=== PATIENT | female | born 1990 | race Caucasian/White ===

== ENCOUNTER 2019-04-23 21:40 | Emergency (ER) | payer OTHER ==
[~2019-04-23] VITALS: Ht 162.6 cm; Wt 79.4 kg
[2019-04-23 21:53] VITALS: BP 124/79
--- NOTE | 2019-04-23 21:56 | NUR ---
PT TO PROVIDE URINE SAMPLE AND AMBULATORY TO LOBBY W/ FAMILY.
--- NOTE | 2019-04-23 22:34 | NUR ---
PT WENT TO XRAY
--- NOTE | 2019-04-23 22:53 | NUR ---
PT AMBULATED TO ER BED 08
--- NOTE | 2019-04-23 23:18 | NUR ---
29 YO F PRESENTS TO ED C/O 03/14 RIGHT GREAT TOE PAIN X 1 HOUR S/P HITTING TOE AGAINST BED FRAME. -- PT AWAKE, ALERT, CALM, COOPERATIVE. ANSWERS QUESTIONS APPROPRIATELY. BEHAVIOR AGE APPROPRIATE. -- PT AMBULATES WITH STEADY GAIT. MILD LIMP NOTED. ROM IN TACT. PEDAL PULSES STRONG, EQUAL. CAP REFILL LESS THAN 3 SECONDS. TOENAIL IS SPLIT OPEN. BLEEDING CONTROLLED. PMH-- DENIES RX-- DENIES
--- NOTE | 2019-04-23 23:42 | NUR ---
Patient discharged with v/s stable. Written and verbal after care instructions given and explained. Patient alert, oriented and verbalized understanding of instructions. Ambulatory with steady gait. All questions addressed prior to discharge. ID band removed. Patient advised to follow up with PMD. Rx of KEFLEX WAS given. Patient educated on indication of medication including possible reaction and side effects. Opportunity to ask questions provided and answered.
[2019-04-23 23:52] VITALS: BP 124/79
== END 2019-04-23 23:42 | disposition home or self-care (01) ==
LOC: MED 21:40
DX: M79.674 Pain in right toe(s) (principal); W22.03XA Walked into furniture, initial encounter; Y93.89 Activity, other specified; Y92.89 Other specified places as the place of occurrence of the external cause; Y99.8 Other external cause status
CPT/HCPCS: 73630; 81025; 99283

== ENCOUNTER 2019-10-31 12:27 | Emergency (ER) | payer OTHER ==
[~2019-10-31] VITALS: Ht 162.6 cm; Wt 81.6 kg
[2019-10-31 12:36] VITALS: BP 100/63
--- NOTE | 2019-10-31 13:59 | NUR ---
DC BY PA IN CHAIR
== END 2019-10-31 13:32 | disposition home or self-care (01) ==
LOC: MED 12:27
DX: R21 Rash and other nonspecific skin eruption (principal)
CPT/HCPCS: 99283

== ENCOUNTER 2020-01-10 01:41 | Emergency (ER) | payer OTHER ==
[~2020-01-10] VITALS: Ht 170.2 cm; Wt 72.6 kg
[2020-01-10 01:53] VITALS: BP 118/73
[2020-01-10 02:30] LABS: BASOPHILS % (AUTO) 0.5 % (0.0-2.0); EOSINOPHILS # (AUTO) 0.1 K/uL (0-0.4); EOSINOPHILS % (AUTO) 1.3 % (0.0-4.0); HEMATOCRIT 33.8 % (36-48); HEMOGLOBIN 10.7 g/dL (12.0-16.0); LYMPHOCYTES # (AUTO) 2.4 K/uL (2.5-16.5); LYMPHOCYTES % (AUTO) 25.8 % (20.5-51.1); MEAN CORPUSCULAR HEMOGLOBIN 24 pg (27-31); MEAN CORPUSCULAR HGB CONC 32 g/dL (33-37); MEAN CORPUSCULAR VOLUME 76.4 fL (80-94); MONOCYTES # (AUTO) 0.6 K/uL (0.8-1.0); MONOCYTES % (AUTO) 6.2 % (1.7-9.3); NEUTROPHILS # (AUTO) 6.1 K/uL (1.8-7.7); NEUTROPHILS % (AUTO) 66.2 % (42.2-75.2); PLATELET COUNT (AUTO) 214 K/uL (140-450); RED BLOOD CELL COUNT(AUTO) 4.42 MIL/uL (4.20-5.40); RED CELL DISTRIBUTION WIDTH 18.9 % (11.6-13.7); WHITE BLOOD COUNT (AUTO) 9.2 K/uL (4.8-10.8)
[2020-01-10 02:49] LABS: ALBUMIN 3.2 g/dL (3.4-5.0); ANION GAP 11.5 (8-16); CARBON DIOXIDE 25.9 mmol/L (21-32); CREATININE 0.7 mg/dL (0.6-1.3); POTASSIUM 3.4 mmol/L (3.5-5.1); TOTAL BILIRUBIN 0.2 mg/dL (0.0-1.0)
[2020-01-10 04:41] VITALS: BP 121/71
== END 2020-01-10 04:41 | disposition home or self-care (01) ==
LOC: MED 01:41
DX: O20.0 Threatened abortion (principal); Z3A.12 12 weeks gestation of pregnancy
CPT/HCPCS: 36415; 76801; 80053; 84702; 85025; 86900; 86901; 99284; Q0092

== ENCOUNTER 2020-01-29 01:12 | Emergency (ER) | payer OTHER ==
[~2020-01-29] VITALS: Ht 162.6 cm; Wt 79.8 kg
[2020-01-29 01:18] VITALS: BP 134/79
--- NOTE | 2020-01-29 01:35 | NUR ---
PT 29 Y/O FEMALE BIB FOR C/O PAINFUL URINATION AND "RASH" X 4 DAYS. PT STATES PAIN IS 7/10 WHEN URINATING AND HAS 7/10 PELVIC PAIN. PT STATES PAIN IS NON-RADIATING. PT DENIES BLEEDING OR ABNORMAL ODOR. PT STATES SHE IS 15 WEEKS PREGNENT. PT STATES THIS IS HER 3RD AND HAS TWO LIVING CHILDREN. BOTH CHILDREN WERE CARRIED TO FULL TERM WITH NO HEALTH COMPLICATIONS. PT STATES SHE HAS NOT HAD A RASH LIKE THIS IN THE PAST. NEGATIVE COVID SCREEN. PT WEARING MASK. MEDHX: NONE ALLERGIES: NKA
--- NOTE | 2020-01-29 01:35 | NUR ---
PT AMBULATED TO BED 4 WITH STEADY GAIT.
--- NOTE | 2020-01-29 01:38 | NUR ---
PT AMBULATED TO RESTROOM WITH STEADY GAIT. UA COLLECTED.
--- NOTE | 2020-01-29 02:06 | NUR ---
DR. ZUNIGA AT BEDSIDE.
--- NOTE | 2020-01-29 02:47 | NUR ---
UA SENT TO LAB.
[2020-01-29 03:18] LABS: APPEARANCE,URINE HAZY (CLEAR); BILIRUBIN,URINE NEGATIVE (NEGATIVE); BLOOD, URINE 1+ (NEGATIVE); COLOR,URINE YELLOW (YELLOW); LEUKOCYTE ESTERASE ,URINE 3+ (NEGATIVE); NITRITE, URINE NEGATIVE (NEGATIVE); PH,URINE 6.5 (5.0-9.0); UGLUCOSE NEGATIVE (NEGATIVE)
--- NOTE | 2020-01-29 03:22 | NUR ---
PT RESPONSIVE TO VERBAL STIMULI. PT AAO X4. RESPIRATIONS ARE EVEN AND UNLABORED. PT STATES PAIN HAS DECREASED FROM 7/10 TO 3/10 IN PELVIC REGION. PT VSS. BED LOCKED AND IN LOWEST POSITION. SIDE RAILS UP X 1.
[2020-01-29 03:33] LABS: RBC,URINE 0-5 /HPF (0-5); WBC,URINE 20-60 /HPF (0-5)
[2020-01-29 04:05] VITALS: BP 128/72
--- NOTE | 2020-01-29 04:05 | NUR ---
Patient discharged with v/s stable. Written and verbal after care instructions given and explained. Patient alert, oriented and verbalized understanding of instructions. Ambulatory with steady gait. All questions addressed prior to discharge. ID band removed. Patient advised to follow up with PMD. Rx of MACROBID, ACYCLOVIR, ACETAMINOPHEN given. Patient educated on indication of medication including possible reaction and side effects. Opportunity to ask questions provided and answered.
== END 2020-01-29 04:05 | disposition home or self-care (01) ==
LOC: MED 01:12
DX: O23.42 Unspecified infection of urinary tract in pregnancy, second trimester (principal); O98.512 Other viral diseases complicating pregnancy, second trimester; B00.9 Herpesviral infection, unspecified; Z3A.15 15 weeks gestation of pregnancy
CPT/HCPCS: 81001; 81025; 87086; 99283

== ENCOUNTER 2020-03-29 10:24 | Observation (INO) | payer OTHER ==
[~2020-03-29] VITALS: Ht 162.6 cm; Wt 81.6 kg
[2020-03-29 12:07] VITALS: BP 106/60
== END 2020-03-29 12:40 | disposition home or self-care (01) ==
LOC: EDSTATUS 10:40 → MLD 10:59
PROVIDERS: ADMIT Obstetrics & Gynecology; ATTEND Obstetrics & Gynecology
DX: O36.8130 Decreased fetal movements, third trimester, not applicable or unspecified (principal); Z3A.37 37 weeks gestation of pregnancy
CPT/HCPCS: G0378